=== PATIENT | female | born 1975 | race Caucasian/White ===

== ENCOUNTER 2024-10-09 07:15 | Inpatient (IN) | payer OTHER ==
[~2024-10-09] VITALS: Ht 167.6 cm; Wt 70.8 kg
[2024-10-09] MEDS ORDERED: LOSARTAN-HCTZ1 EACH PO (09:11)
[2024-10-09] MEDS ORDERED: ROSUVASTATIN CAL5 MG PO (09:11)
[2024-10-09] MEDS ORDERED: FERROCITE324 MG PO (09:12)
[2024-10-09] MEDS ORDERED: MONTELUKAST SOD10 MG PO (09:12)
[2024-10-09] MEDS ORDERED: FLONASE16 GM (09:13)
[2024-10-09] MEDS ORDERED: ZYRTEC10 M3 PO (09:13)
[2024-10-09 09:18] VITALS: BP 151/75
[2024-10-09 09:49] LABS: PH,URINE 5.5 (5.0-8.0); URINE APPEARANCE Clear; URINE BILIRRUBIN Negative (NEGATIVE); URINE BLOOD Negative; URINE COLOR Yellow; URINE GLUCOSE Negative (NEGATIVE); URINE KETONE Negative (NEGATIVE); URINE LEUKOCYTE Trace; URINE NITRATE Negative; URINE PROTEIN Negative (NEGATIVE); URINE UROBILINOGEN 0.2 E.U./dl
[2024-10-09 09:53] LABS: URINE BACTERIA 505.4 uL (0.0-1933); URINE EPITHELIAL CELLS 9.9 uL (0.0-38.8); URINE RBC 16.3 uL (0.0-20.8); URINE WBC 22.4 uL (0.0-23.2)
[2024-10-09 10:00] LABS: BASO % 0.4 % (0.1-1.2); EOS # 0.21 (0.04-0.54); EOS % 3.7 % (0.7-7.0); HEMATOCRIT 41.1 % (34.1-44.9); HEMOGLOBIN 14.1 g/dL (11.2-15.7); LYMPH # 1.46 (1.18-3.74); LYMPH % 25.8 % (19.3-53.1); MEAN CORPUSCULAR HEMOGLOBIN 30.7 pg (25.6-32.2); MONO # 0.23 (0.24-0.82); MONO % 4.1 % (4.7-12.5); NEUT # 3.72 (1.56-6.13); NEUT % 65.8 % (34.0-71.1); PLATELET COUNT 315 K/uL (163-369); RED BLOOD COUNT 4.59 M/uL (3.93-5.22); RED CELL DISTRIBUTION WIDTH 12.4 % (11.6-14.4)
[2024-10-09 10:14] LABS: INR 1.05; PARTIAL THROMBOPLASTIN TIME 27.7 SECONDS (22.0-34.0); PROTHROMBIN TIME 11.4 SECONDS (9.0-11.5)
[2024-10-09 10:50] LABS: ALBUMIN 4.2 gm/dL (3.4-5.0); BILIRUBIN TOTAL 0.61 mg/dL (0.3-1.2); CALCIUM 9.6 mg/dL (8.5-10.1); CREATININE SERUM 0.68 mg/dL (0.55-1.02); GFR 92.74; GLOBULINA 3.2 G/DL (2.4-3.5); POTASSIUM 4.24 mEq/L (3.5-5.1); TOTAL PROTEIN 7.4 gm/dL (6.4-8.2); TSH 0.823 uIU/mL (0.358-3.74)
[2024-10-12] MEDS ORDERED: CEFOXITIN SODIUM 2,000 MG VIAL IV ONE (06:54)
[2024-10-12] MEDS ORDERED: POVIDONE-IODINE 118 ML BOTT TOP ONE (07:23)
[2024-10-12] MEDS ORDERED: CHLORHEXIDINE GLUCONATE 120 ML BOTTLE TOP ONE (07:23)
[2024-10-12] MEDS ORDERED: BUPIVACAINE HCL/MPF 0.5% 30ML VIAL ONE (07:27)
[2024-10-12] MEDS ORDERED: LIDOCAINE HCL 1%/EPINEPHRINE 20ML VIAL IJ ONE (07:27)
[2024-10-12] MEDS ORDERED: MORPHINE SULFATE 4 MG/ML CARTRIDGE IV SCH (09:35)
[2024-10-12] MEDS ORDERED: ONDANSETRON HCL 2 MG/ML VIAL IV SCH (09:36)
[2024-10-12] MEDS ORDERED: RINGERS SOLUTION,LACTATED 1,000 ML IV SCH (09:45)
[2024-10-12] MEDS ORDERED: MORPHINE SULFATE 4 MG/ML VIAL IV ONE (10:30)
[2024-10-12 12:31] VITALS: BP 144/87
[2024-10-12 16:00] VITALS: BP 121/66; O2SAT 99
[2024-10-12 16:10] LABS: BASO % 0.2 % (0.1-1.2); EOS # 0.01 (0.04-0.54); EOS % 0.1 % (0.7-7.0); HEMATOCRIT 37.7 % (34.1-44.9); HEMOGLOBIN 13.2 g/dL (11.2-15.7); LYMPH % 11.2 % (19.3-53.1); MEAN CORPUSCULAR HEMOGLOBIN 30.6 pg (25.6-32.2); MONO # 0.41 (0.24-0.82); MONO % 4.2 % (4.7-12.5); NEUT # 8.23 (1.56-6.13); NEUT % 84.1 % (34.0-71.1); PLATELET COUNT 274 K/uL (163-369); RED BLOOD COUNT 4.31 M/uL (3.93-5.22); RED CELL DISTRIBUTION WIDTH 12.1 % (11.6-14.4)
[2024-10-13 01:09] VITALS: BP 116/61
[2024-10-13 09:07] VITALS: BP 131/84
[2024-10-13] MEDS ORDERED: ACETAMINOPHEN WITH CODEINE 1 UDTAB TABLET PO STA (09:08)
[2024-10-13] MEDS ORDERED: NAPR500T14 PO (09:10)
[2024-10-13] MEDS ORDERED: Tylenol #3 PO (09:10)
== END 2024-10-13 12:28 | disposition home or self-care (01) | DRG 743 ==
LOC: SURH 10-12 07:00 → O/R 10-12 07:10 → OB/GYN 10-12 07:10 → SURH 10-12 07:15 → OB/GYN 10-12 11:20
PROVIDERS: ADMIT Obstetrics & Gynecology; ATTEND Obstetrics & Gynecology
PROC: 0UT7FZZ Resection of Bilateral Fallopian Tubes, Via Natural or Artificial Opening With Percutaneous Endoscopic Assistance (ICD-10-PCS; 2024-10-12)
PROC: 0UT2FZZ Resection of Bilateral Ovaries, Via Natural or Artificial Opening With Percutaneous Endoscopic Assistance (ICD-10-PCS; 2024-10-12)
PROC: 0USG4ZZ Reposition Vagina, Percutaneous Endoscopic Approach (ICD-10-PCS; 2024-10-12)
PROC: 0TJB8ZZ Inspection of Bladder, Via Natural or Artificial Opening Endoscopic (ICD-10-PCS; 2024-10-12)
PROC: 0UT9FZZ Resection of Uterus, Via Natural or Artificial Opening With Percutaneous Endoscopic Assistance (ICD-10-PCS; principal; 2024-10-12 07:00)
DX: D25.1 Intramural leiomyoma of uterus (principal); N85.02 Endometrial intraepithelial neoplasia [EIN]; N83.202 Unspecified ovarian cyst, left side; N39.3 Stress incontinence (female) (male)